=== PATIENT | male | born 2000 | race African-American/Black ===

== ENCOUNTER 2020-07-13 01:57 | Inpatient (IN) | payer MEDICAID, OTHER ==
[~2020-07-13] VITALS: Ht 188 cm; Wt 74.4 kg
[2020-07-13] MEDS ORDERED: SODIUM CHLORIDE 0.9% 1,000 ML IV ONE ×2 (02:30→05:00)
[2020-07-13] MEDS ORDERED: THIAMINE INJ 100 MG in SODIUM CHLORIDE 0.9% 1,000 ML IV ONE (02:30)
[2020-07-13] MEDS ORDERED: diphenhdrAMINE HCL 50 MG/1 ML VL IM ONE (03:00)
[2020-07-13] MEDS ORDERED: HALOPERIDOL LACTATE 5 MG/ML INJ VIAL IM ONE (03:00)
[2020-07-13] MEDS ORDERED: LORazepam 2MG/ML-1ML VIAL IM ONE (03:00)
[2020-07-13 03:15] LABS: Basophils # (auto) 0.1 10 ^3/uL (0-0.2); Basophils % (auto) 0.8 % (0.0-2.0); Eosinophils # (auto) 0 10 ^3/uL (0-0.8); Hematocrit 42.7 % (41.0-53.0); Hemoglobin 13.9 g/dL (13.5-17.5); Lymphocytes # (auto) 0.7 10 ^3/uL (0.4-5.4); Lymphocytes % (auto) 7.5 % (10.0-50.0); Mean Corpuscular Hemoglobin 25.7 pg (28.0-32.0); Mean Corpuscular Hgb Conc. 32.5 g/dL (32.0-36.0); Mean Corpuscular Volume 79.1 fL (80.0-100.0); Monocytes # (auto) 0.6 10 ^3/uL (0-1.3); Monocytes % (auto) 6.7 % (0.0-12.0); Platelet Count (auto) 214 10^3/uL (140-450); Red Cell Distribution Width 14.7 % (11.8-14.3); White Blood Cell 9.4 10^3/uL (4.4-10.8)
[2020-07-13 03:32] LABS: Albumin 4.4 g/dL (3.4-5.0); Anion Gap 7 (5-15); Blood Urea Nitrogen 12 mg/dL (7-18); Calcium 9.2 mg/dL (8.5-10.1); Carbon Dioxide 25 mmol/L (21-32); Chloride 111 mmol/L (98-107); Glucose 103 mg/dL (74-106); Magnesium 2.2 mg/dL (1.6-2.6); Potassium 3.6 mmol/L (3.5-5.1); Sodium 143 mmol/L (136-145)
[2020-07-13 03:33] LABS: Salicylate < 1.7 mg/dL (2.8-20.0)
[2020-07-13 03:35] LABS: Acetaminophen < 2.0 ug/mL (10-30)
[2020-07-13 03:39] LABS: Alanine Aminotransferase 62 U/L (16-61); Alkaline Phosphatase 81 U/L (45-117); Aspartate Aminotransferase 48 U/L (15-37); Bilirubin, Total 0.6 mg/dL (0.2-1.0); Blood Alcohol < 3.0 mg/dL (0-5); Creatine Kinase IFCC 675 U/L (39-308); GFR African American 111 mL/min; GFR Non-African American 92 mL/min; Lactate Dehydrogenase 248 U/L (87-241); Total Protein 8.1 g/dL (6.4-8.2)
[2020-07-13] MEDS ORDERED: THIAMINE 100mg/ml INJ (200mg/2ml VIAL) ONE (05:05)
[2020-07-13 10:29] LABS: Urine Bacteria NONE SEEN /hpf (None Seen); Urine Blood Negative /uL (Negative); Urine Mucus FEW (None Seen); Urine WBC 2 /hpf (0 - 3)
[2020-07-13 10:42] LABS: Albumin 3.7 g/dL (3.4-5.0); Calcium 8.8 mg/dL (8.5-10.1); Potassium 3.7 mmol/L (3.5-5.1)
[2020-07-13 10:44] LABS: Alcohol, Urine < 3.0 mg/dL (0-10); Amphetamine Screen, Urine NEGATIVE (NEGATIVE); Barbiturate Scree,Urine NEGATIVE (NEGATIVE); Benzodiazephine Screen, Urine NEGATIVE (NEGATIVE); Cannabinoid Screen, Urine POSITIVE (NEGATIVE); Cocaine Screen, Urine NEGATIVE (NEGATIVE); Opiate Scree,Urine NEGATIVE (NEGATIVE); Phencyclidine Screen, Urine NEGATIVE (NEGATIVE)
[2020-07-13 10:57] LABS: BUN/Creatinine Ratio 10.4; Bilirubin, Total 0.7 mg/dL (0.2-1.0); Total Protein 7.1 g/dL (6.4-8.2)
[2020-07-13] MEDS ORDERED: SODIUM CHLORIDE 0.9% 2,000 ML IV ONE (12:30)
[2020-07-13] MEDS ORDERED: traMADol HCL 50 MG TAB PO PRN (15:30)
[2020-07-13] MEDS ORDERED: PROMETHAZINE HCL 25 MG/ML 1ML IV PRN (15:30)
[2020-07-13] MEDS ORDERED: NITROGLYCERIN 0.4 MG SL TAB SL PRN (15:30)
[2020-07-13] MEDS ORDERED: MORPHINE SULF INJ 2 MG/ML SYRINGE 1ML IV PRN (15:30)
[2020-07-13] MEDS ORDERED: LACTULOSE 20Gm/30ML SOLN PO PRN (15:30)
[2020-07-13 15:42] LABS: Albumin 3.4 g/dL (3.4-5.0); Calcium 8.3 mg/dL (8.5-10.1); Potassium 3.9 mmol/L (3.5-5.1)
[2020-07-13 15:47] LABS: Bilirubin, Total 0.8 mg/dL (0.2-1.0); Total Protein 6.7 g/dL (6.4-8.2)
[2020-07-13] MEDS: SODIUM CHLORIDE 0.9% 1,000 ML IV SCH (15:54)
[2020-07-13 16:23] LABS: BUN/Creatinine Ratio 10.8
--- NOTE | 2020-07-13 22:16 | NUR ---
TELE ADMIT Patient arrived to unit at this time. Patient is A&O X's 4 with no s/s of distress and reports no pain. Patient is on room air and respirations are even and unlabored. Started IV fluids on patient as ordered. Educated patient on POC and to use call light when in need of any assistance. Oriented patient to unit: call light/tv/bathroom/lights/phone. Patient verbalized understanding. Bed is in lowest/locked position with side rails up X's 2 and call light is within reach of patient. Food and beverages given to patient. Will continue care.
--- NOTE | 2020-07-13 22:40 | NUR ---
SPOKE WITH POISON CONTROL GAVE THEM AN UPDATE ON PATIENTS CONDITION AND LABS. NO RECOMMENDATIONS OF NOW. THEY WILL CALL BACK TOMORROW TO FOLLOW UP ON THE PATIENT'S LABS.
[2020-07-13 23:00] VITALS: BP 140/70
[2020-07-13 23:16] VITALS: BP 140/70
[2020-07-14] MEDS: SODIUM CHLORIDE 0.9% 1,000 ML IV SCH ×2 (00:06→06:46)
--- NOTE | 2020-07-14 03:00 | NUR ---
ROUNDS Patient resting with blanket over head. Patient awakened with sound during rounds. Patient has no complaints at this time and shows no s/s of distress. Will continue care.
[2020-07-14 05:46] VITALS: BP 121/74
--- NOTE | 2020-07-14 07:00 | NUR ---
OPENING SHIFT NOTES Assumed care of patient from retail shift manager RN. Patient is alert and oriented x4, no signs of distress noted, he denies pain. He was updated on the plan of care and verbalized understanding. Bed is locked, in the lowest position, side rails are up x2 and call light is in reach. Patient was encouraged to call for assistance as needed.
[2020-07-14 07:11] LABS: Basophils # (auto) 0.1 10 ^3/uL (0-0.2); Eosinophils # (auto) 0.1 10 ^3/uL (0-0.8); Monocytes # (auto) 0.6 10 ^3/uL (0-1.3); Neutrophils % (auto) 52.2 % (37.0-80.0)
[2020-07-14 07:14] LABS: Basophils % (auto) 1.7 % (0.0-2.0); Eosinophils % (auto) 1.9 % (0.0-7.0); Hematocrit 40.4 % (41.0-53.0); Hemoglobin 13.1 g/dL (13.5-17.5); Lymphocytes # (auto) 1.6 10 ^3/uL (0.4-5.4); Lymphocytes % (auto) 31.8 % (10.0-50.0); Mean Corpuscular Hemoglobin 25.9 pg (28.0-32.0); Mean Corpuscular Hgb Conc. 32.4 g/dL (32.0-36.0); Mean Corpuscular Volume 80.1 fL (80.0-100.0); Monocytes % (auto) 12.4 % (0.0-12.0); Neutrophils # (auto) 2.7 10 ^3/uL (1.6-8.6); Platelet Count (auto) 194 10^3/uL (140-450); Red Blood Cells 5.05 10^6/uL (4.5-5.90); Red Cell Distribution Width 14.7 % (11.8-14.3); White Blood Cell 5.1 10^3/uL (4.4-10.8)
[2020-07-14 08:01] LABS: Albumin 3.5 g/dL (3.4-5.0); BUN/Creatinine Ratio 7.6; Bilirubin, Total 1.1 mg/dL (0.2-1.0); Calcium 8.7 mg/dL (8.5-10.1)
--- NOTE | 2020-07-14 10:58 | NUR ---
RENE AT BEDSIDE Updated on the patient status, plan of care was discussed with the patient and he verbalized understanding. No new orders received.
[2020-07-14 12:44] VITALS: BP 137/70
[2020-07-14 13:00] VITALS: BP 137/70
--- NOTE | 2020-07-14 13:40 | NUR ---
DISCHARGE Discharge instructions given as ordered. Encourage to follow up with PMD as instructed. All questions and concerns addressed. Patient verbalized understanding. Medication reconciliation form completed and copy given to patient. IV removed with catheter intact, pressure dressing applied, Telemetry unit returned to ICU. Patient taken to vehicle via wheelchair with all personal belongings, accompanied by staff. No distress noted at time of departure.
== END 2020-07-14 13:40 | disposition home or self-care (01) | DRG 812 ==
LOC: EDBD 01:57 → ER 02:04 → TELE 02:05 → TELE-WESTW 22:03
PROVIDERS: ADMIT Internal Medicine; ATTEND Internal Medicine Nephrology
DX: T40.7X1A Poisoning by cannabis (derivatives), accidental (unintentional), initial encounter (principal); G92 Toxic encephalopathy; M62.82 Rhabdomyolysis; F12.10 Cannabis abuse, uncomplicated; I95.9 Hypotension, unspecified
CPT/HCPCS: 36415; 70450; 71045; 80053; 80307; 80320; 80329; 81001; 82550; 83615; 83735; 84484; 85025; 85652; 93005; 96361; 96365; 96375; G0378

== ENCOUNTER 2020-07-28 15:34 | Emergency (ER) | payer SELFPAY ==
[~2020-07-28] VITALS: Ht 172.7 cm; Wt 65.8 kg
[2020-07-28 15:35] VITALS: BP 112/74
[2020-07-28 16:58] LABS: Basophils # (auto) 0 10 ^3/uL (0-0.2); Basophils % (auto) 0.3 % (0.0-2.0); Eosinophils # (auto) 0 10 ^3/uL (0-0.8); Hemoglobin 14.6 g/dL (13.5-17.5); Mean Corpuscular Volume 79.2 fL (80.0-100.0)
[2020-07-28 17:00] LABS: Eosinophils % (auto) 0.7 % (0.0-7.0); Hematocrit 45.1 % (41.0-53.0); Lymphocytes # (auto) 1.4 10 ^3/uL (0.4-5.4); Lymphocytes % (auto) 19.7 % (10.0-50.0); Mean Corpuscular Hemoglobin 25.6 pg (28.0-32.0); Mean Corpuscular Hgb Conc. 32.3 g/dL (32.0-36.0); Monocytes # (auto) 0.7 10 ^3/uL (0-1.3); Monocytes % (auto) 9.8 % (0.0-12.0); Neutrophils # (auto) 4.8 10 ^3/uL (1.6-8.6); Neutrophils % (auto) 69.5 % (37.0-80.0); Nucleated Red Blood Cells % 0.6 %; Platelet Count (auto) 257 10^3/uL (140-450); Red Blood Cells 5.69 10^6/uL (4.5-5.90); Red Cell Distribution Width 14.5 % (11.8-14.3); White Blood Cell 6.9 10^3/uL (4.4-10.8)
[2020-07-28 17:17] LABS: Albumin 4.4 g/dL (3.4-5.0); Anion Gap 7 (5-15); Blood Alcohol < 3.0 mg/dL (0-5); Blood Urea Nitrogen 10 mg/dL (7-18); Calcium 9.1 mg/dL (8.5-10.1); Carbon Dioxide 25 mmol/L (21-32); Chloride 108 mmol/L (98-107); Glucose 113 mg/dL (74-106); Potassium 3.7 mmol/L (3.5-5.1); Sodium 140 mmol/L (136-145)
[2020-07-28 17:21] LABS: Alanine Aminotransferase 27 U/L (16-61); Alkaline Phosphatase 85 U/L (45-117); Aspartate Aminotransferase 21 U/L (15-37); BUN/Creatinine Ratio 7.6; Bilirubin, Total 0.5 mg/dL (0.2-1.0); GFR African American 89 mL/min; GFR Non-African American 73 mL/min; Total Protein 8.5 g/dL (6.4-8.2)
[2020-07-28 23:51] LABS: Acetaminophen < 2.0 ug/mL (10-30); Salicylate < 1.7 mg/dL (2.8-20.0)
== END 2020-07-28 18:05 | disposition left against medical advice (07) ==
LOC: EDBD 15:34 → ER 15:34
DX: R45.851 Suicidal ideations (principal)
CPT/HCPCS: 36415; 80053; 80320; 80329; 85025

== ENCOUNTER 2021-09-30 18:34 | Emergency (ER) | payer MEDICAID, OTHER ==
[~2021-09-30] VITALS: Ht 180.3 cm; Wt 68.0 kg
[2021-09-30] MEDS ORDERED: LORazepam 2MG/ML-1ML VIAL ONE (20:12)
[2021-09-30] MEDS ORDERED: HALOPERIDOL LACTATE 5 MG/ML INJ VIAL ONE (20:12)
[2021-09-30] MEDS ORDERED: diphenhdrAMINE HCL 50 MG/1 ML VL ONE (20:12)
[2021-09-30] MEDS ORDERED: diphenhdrAMINE HCL 50 MG/1 ML VL IM ONE (20:30)
[2021-09-30] MEDS ORDERED: LORazepam 2MG/ML-1ML VIAL IM ONE (20:30)
[2021-09-30] MEDS ORDERED: HALOPERIDOL LACTATE 5 MG/ML INJ VIAL IM ONE (20:30)
[2021-09-30 20:43] LABS: Basophils # (auto) 0.1 10 ^3/uL (0-0.2); Eosinophils # (auto) 0 10 ^3/uL (0-0.8); Lymphocytes # (auto) 1.8 10 ^3/uL (0.4-5.4); Mean Corpuscular Volume 77.7 fL (80.0-100.0); Monocytes # (auto) 0.8 10 ^3/uL (0-1.3); Neutrophils % (auto) 50.2 % (37.0-80.0)
[2021-09-30 20:44] LABS: Basophils % (auto) 1.2 % (0.0-2.0); Eosinophils % (auto) 0.8 % (0.0-7.0); Hematocrit 46.2 % (41.0-53.0); Hemoglobin 15.2 g/dL (13.5-17.5); Lymphocytes % (auto) 32.8 % (10.0-50.0); Mean Corpuscular Hemoglobin 25.7 pg (28.0-32.0); Neutrophils # (auto) 2.7 10 ^3/uL (1.6-8.6); Nucleated Red Blood Cells % 0.1 %; Red Blood Cells 5.94 10^6/uL (4.5-5.90); Red Cell Distribution Width 14.6 % (11.8-14.3); White Blood Cell 5.4 10^3/uL (4.4-10.8)
[2021-09-30 21:01] LABS: Albumin 4.1 g/dL (3.4-5.0); BUN/Creatinine Ratio 8.4; Calcium 9.4 mg/dL (8.5-10.1); Potassium 3.9 mmol/L (3.5-5.1)
[2021-09-30 21:03] LABS: Bilirubin, Total 0.6 mg/dL (0.2-1.0); Total Protein 8.1 g/dL (6.4-8.2)
[2021-09-30 21:09] LABS: Salicylate < 1.7 mg/dL (2.8-20.0)
[2021-09-30 21:21] LABS: Acetaminophen < 2.0 ug/mL (10-30)
[2021-10-01 08:37] LABS: Amphetamine Screen, Urine NEGATIVE (NEGATIVE); Barbiturate Scree,Urine NEGATIVE (NEGATIVE); Benzodiazephine Screen, Urine NEGATIVE (NEGATIVE); Cannabinoid Screen, Urine POSITIVE (NEGATIVE); Cocaine Screen, Urine NEGATIVE (NEGATIVE); Phencyclidine Screen, Urine NEGATIVE (NEGATIVE)
[2021-10-01 08:43] LABS: Urine Bacteria NONE SEEN /hpf (None Seen); Urine Blood Negative /uL (Negative); Urine Mucus MANY (None Seen); Urine Specific Gravity 1.035 (1.001-1.035); Urine WBC 7 /hpf (0 - 3)
[2021-10-01 08:45] LABS: Opiate Scree,Urine NEGATIVE (NEGATIVE)
[2021-10-01] MEDS ORDERED: LORazepam 2MG/ML-1ML VIAL IM ONE ×2 (13:00→17:45)
[2021-10-01] MEDS ORDERED: OLANZapine 5 MG TAB PO ONE ×2 (14:51→22:00)
[2021-10-01] MEDS ORDERED: diphenhdrAMINE HCL 50 MG/1 ML VL IM ONE (17:45)
[2021-10-01] MEDS ORDERED: HALOPERIDOL LACTATE 5 MG/ML INJ VIAL IM ONE (17:45)
[2021-10-02] MEDS ORDERED: HALOPERIDOL LACTATE 5 MG/ML INJ VIAL IM ONE (12:15)
[2021-10-02] MEDS ORDERED: LORazepam 2MG/ML-1ML VIAL IM ONE (12:15)
[2021-10-04] MEDS ORDERED: LORazepam 2MG/ML-1ML VIAL ONE (01:52)
[2021-10-04] MEDS ORDERED: HALOPERIDOL LACTATE 5 MG/ML INJ VIAL ONE (01:52)
[2021-10-04] MEDS ORDERED: diphenhdrAMINE HCL 50 MG/1 ML VL ONE (01:52)
[2021-10-04] MEDS ORDERED: diphenhdrAMINE HCL 50 MG/1 ML VL IM ONE (03:15)
[2021-10-04] MEDS ORDERED: HALOPERIDOL LACTATE 5 MG/ML INJ VIAL IM ONE (03:15)
[2021-10-04] MEDS ORDERED: LORazepam 2MG/ML-1ML VIAL IM ONE (03:15)
[2021-10-04] MEDS ORDERED: ONDANSETRON ODT 4 MG TAB PO ONE ×2 (20:00→20:04)
[2021-10-04] MEDS ORDERED: QUEtiapine FUMARATE 100 MG TAB PO ONE (20:00)
[2021-10-04] MEDS ORDERED: QUEtiapine FUMARATE 100 MG TAB ONE (20:04)
[2021-10-05 09:56] VITALS: BP 118/76
== END 2021-10-05 10:34 | disposition home or self-care (01) ==
LOC: ER 18:35
DX: R41.0 Disorientation, unspecified (principal); Z20.822 Contact with and (suspected) exposure to COVID-19
CPT/HCPCS: 36415; 80053; 80307; 80320; 80329; 81001; 85025; 87426; 96372; 99284; J1200; J1630; J2060; Q0162